=== PATIENT | male | born 1975 | race Caucasian/White ===

== ENCOUNTER 2020-11-10 22:56 | Emergency (ER) | payer OTHER ==
[~2020-11-10] VITALS: Ht 185.4 cm; Wt 113.4 kg
[2020-11-10 23:50] LABS: BILIRUBIN Negative (Negative); BLOOD 3+ (Negative); CLARITY Cloudy (Clear); COLOR Yellow (Yellow); GLUCOSE Negative (Negative); KETONE Trace (Negative); LEUKO ESTERASE Trace (Negative); NITRITE Negative (Negative); SPECIFIC GRAVITY 1.025 (1.001-1.030)
[2020-11-11] MEDS ORDERED: FLOMAX0.4 MG PO (00:09)
[2020-11-11] MEDS ORDERED: ZOFRAN4 MG PO (00:09)
[2020-11-11 00:19] LABS: BACTERIA 1+; MUCOUS 2+; RBC 41-50 rbc/hpf (0-2)
== END 2020-11-11 00:13 | disposition home or self-care (01) ==
LOC: ED 22:56 → EDBD 23:00 → ED 23:00
PROVIDERS: Internal Medicine
DX: N13.2 Hydronephrosis with renal and ureteral calculous obstruction (principal)

== ENCOUNTER 2020-11-12 03:43 | Emergency (ER) | payer OTHER ==
[~2020-11-12] VITALS: Ht 185.4 cm; Wt 113.4 kg
[~2020-11-12 03:43] MED LIST: FLOMAX0.4 MG PO; ZOFRAN4 MG PO
== END 2020-11-12 04:21 | disposition home or self-care (01) ==
LOC: ED 03:43
DX: N20.9 Urinary calculus, unspecified (principal); Z79.899 Other long term (current) drug therapy

== ENCOUNTER 2024-04-28 13:13 | Emergency (ER) | payer SELFPAY ==
[~2024-04-28] VITALS: Ht 185.4 cm; Wt 122.5 kg
[2024-04-28 13:56] LABS: BASO % 0.3 % (0.0-1.0); EOS % 0.3 % (1.0-4.0); MEAN CELL VOLUME 89.3 fl (80.0-94.0); MEAN CORPUSCULAR HGB 30.3 pg (27.0-31.0); MEAN CORPUSCULAR HGB CONC 33.9 g/dl (33.0-37.0); MEAN PLATELET VOLUME 10.1 fl (9.6-12.3); MONO # 1.3 10*3/uL (0.1-1.0); MONO % 16.7 % (3.0-9.0); NEUT # 4.9 10*3/uL (2.3-7.9); NEUT % 65.3 % (47.0-73.0); PLATELET COUNT AUTOMATED 224 10*3/uL (130-400); RED BLOOD COUNT 5.15 10*6/uL (4.50-5.90); RED CELL DISTRI WIDTH 12.6 % (0-14.5); WHITE BLOOD COUNT 7.5 10*3/uL (4.8-10.8)
[2024-04-28 14:15] LABS: BUN 9 mg/dl (9-23); CHLORIDE 104 mmol/L (98-107); POTASSIUM 3.7 mmol/L (3.4-5.1)
== END 2024-04-28 15:34 | disposition home or self-care (01) ==
LOC: ED 13:13
PROVIDERS: Nurse Practitioner Family
DX: U07.1 COVID-19 (principal); Z87.442 Personal history of urinary calculi; Z88.6 Allergy status to analgesic agent; Z88.1 Allergy status to other antibiotic agents

== ENCOUNTER → 2024-11-16 | Outpatient (CLI) | payer OTHER | END | disposition home or self-care (01) | LOC: RAD 12:32 | PROVIDERS: ATTEND Nurse Practitioner | DX: M48.02 Spinal stenosis, cervical region (principal); M54.2 Cervicalgia; M89.8X1 Other specified disorders of bone, shoulder ==